=== PATIENT | male | born 1960 | race American Indian/Alaskan Native ===

== ENCOUNTER 2022-07-01 17:08 | Emergency (ER) | payer OTHER ==
[2022-07-01 20:54] VITALS: BP 170/102
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
== END 2022-07-02 01:40 | disposition home or self-care (01) ==
LOC: ED 17:08
DX: M79.10 Myalgia, unspecified site (principal); M54.50 Low back pain, unspecified; F17.200 Nicotine dependence, unspecified, uncomplicated; V89.2XXA Person injured in unspecified motor-vehicle accident, traffic, initial encounter; Y93.89 Activity, other specified; Y92.89 Other specified places as the place of occurrence of the external cause; Y99.8 Other external cause status
CPT/HCPCS: 71046; 99283